=== PATIENT | male | born 1955 | race Caucasian/White ===

== ENCOUNTER 2017-08-11 17:36 | Emergency (ER) | payer MEDICAID ==
[~2017-08-11] VITALS: Ht 170.2 cm; Wt 74.0 kg
[2017-08-11 17:38] VITALS: BP 127/70
== END 2017-08-11 20:25 | disposition left against medical advice (07) ==
LOC: ED 20:19
DX: F20.9 Schizophrenia, unspecified (principal)
CPT/HCPCS: 99281

== ENCOUNTER 2017-08-18 18:02 | Emergency (ER) | payer MEDICARE, MEDICAID ==
[~2017-08-18] VITALS: Ht 170.2 cm; Wt 84.1 kg
[2017-08-18 18:19] VITALS: BP 125/85
[2017-08-18 18:57] LABS: BASOPHILS % (AUTO) 1 % (0-1); EOSINOPHILS # (AUTO) 0.13 x10^3/uL (0-0.4); EOSINOPHILS % (AUTO) 1 % (1-7); LYMPHOCYTES # (AUTO) 2.09 x10^3/uL (1-3.4); LYMPHOCYTES % (AUTO) 17 % (22-44); MD NO; MEAN CORPUSCULAR HEMOGLOBIN 29.5 pg (27.5-34.5); MEAN CORPUSCULAR HGB CONC 33.2 g/dL (33.2-36.2); MEAN PLATELET VOLUME 8.4 fL (7.4-10.4); MONOCYTES % (AUTO) 6 % (2-9); NEUTROPHILS # (AUTO) 9.49 x10^3/uL (1.8-6.8); NEUTROPHILS % (AUTO) 75 % (42-75); PLATELET COUNT 271 x10^3/uL (130-400); RED BLOOD COUNT 5.35 x10^6/uL (4.38-5.82); RED CELL DISTRIBUTION WIDTH 13.4 % (9.4-14.8)
[2017-08-18 19:07] LABS: ANION GAP 4 mmol/L (5-15); CHLORIDE 109 mmol/L (98-107)
[2017-08-18 19:11] LABS: ALANINE AMINOTRANSFERASE 52 U/L (12-78); ALKALINE PHOSPHATASE 106 U/L (45-117); BILIRUBIN,TOTAL 0.4 mg/dL (0.2-1.0); CREATININE 1.15 mg/dL (0.7-1.3); TOTAL PROTEIN 6.8 g/dL (6.4-8.2)
[2017-08-18 19:34] LABS: SALICYLATE LEVEL 4.4 mg/dL (2.8-20.0)
[2017-08-18 19:35] LABS: ACETAMINOPHEN < 2 mcg/mL (10-30)
[2017-08-18 19:45] LABS: AMPHETAMINE SCREEN, URINE Negative (Negative); BARBITURATE SCREEN, URINE Negative (Negative); BENZODIAZEPINE SCREEN, URINE Negative (Negative); CANNABINOID SCREEN, URINE Negative (Negative); COCAINE SCREEN, URINE Negative (Negative); METHADONE SCREEN, URINE Negative (Negative); OPIATE SCREEN, URINE Negative (Negative)
[2017-08-18 20:13] LABS: CULTURE INDICATED? YES; MICROSCOPIC INDICATED
[2017-08-18] MEDS ORDERED: CEFTRIAXONE 1,000 MG IM ONE (22:00)
[2017-08-18] MEDS ORDERED: CEFTRIAXONE 1,000 MG ONE (22:02)
== END 2017-08-18 22:13 | disposition home or self-care (01) ==
LOC: ED 19:41
DX: F20.0 Paranoid schizophrenia (principal); N39.0 Urinary tract infection, site not specified; N40.0 Benign prostatic hyperplasia without lower urinary tract symptoms
CPT/HCPCS: 36415; 80053; 80307; 80329; 81001; 82140; 85025; 87086; 93005; 96372; 99285; J0696; G0480

== ENCOUNTER 2017-08-31 07:52 | Emergency (ER) | payer MEDICAID, MEDICARE ==
[~2017-08-31] VITALS: Ht 170.2 cm; Wt 72.0 kg
[2017-08-31 07:57] VITALS: BP 122/80
[2017-08-31] MEDS ORDERED: risperdal (08:28)
[2017-08-31] MEDS ORDERED: metformin (08:28)
[2017-08-31 09:20] LABS: ALBUMIN 2.6 g/dL (3.4-5.0); ANION GAP 7 mmol/L (5-15); CALCIUM 8.6 mg/dL (8.5-10.1); CHLORIDE 107 mmol/L (98-107)
[2017-08-31 09:38] LABS: ACETONE, SERUM Negative (Negative)
== END 2017-08-31 10:19 | disposition home or self-care (01) ==
LOC: ED 09:20
DX: N30.90 Cystitis, unspecified without hematuria (principal); F17.200 Nicotine dependence, unspecified, uncomplicated
CPT/HCPCS: 80048; 82010; 82040; 82962; 99284